=== PATIENT | male | born 1930 | race Caucasian/White ===

== ENCOUNTER 2016-11-02 10:15 | Inpatient (IN) | payer OTHER ==
[~2016-11-02] VITALS: Ht 177.8 cm; Wt 74.8 kg
--- NOTE | ~2016-11-02 | EKG ---
[address] [employer] [place] [address] ELECTROCARDIOGRAM REPORT Name: CYNDIE SERRA Room #: 435-P ADM IN M.R.#: [id number] Admission: 11/02/16 Attend Phys: Fortunato Cantor MD Discharge: Date of : 30 Report #: [id number] THIS REPORT FOR: //name// Test Date: 2016-11-02 Test Time: 12:27:41 Pat Name: CYNDIE SERRA Department: Room: 435 P Gender: M Certified Family Mediator: JEIMY : 1930 Requested By: Fortunato Cantor Order Number: [id number] MD: Brian Avila Measurements Intervals [place] Rate: 62 P: 45 MS: 167 QRS: 33 QRSD: 101 T: 32 QT: 439 QTc: 446 Interpretive Statements Sinus rhythm Abnormal R-wave progression, early transition Compared to ECG 07/24/2015 08:25:[address] and T wave abnormality is no longer present Electronically Signed On 11-03-2016 18:15:59 CDT by Brian Avila [email or web address] <ELECTRONICALLY SIGNED> By: Brian Avila MD, [facility] 11/03/16 8849 1227 1227 Brian Avila MD, [facility] /EPI
--- NOTE | ~2016-11-02 | O ---
[facility] [place] [address] OPERATIVE REPORT Name: CYNDIE SERRA Room #: 435-P [facility] IN M.R.#: [id number] Admission: 11/02/16 Attend Phys: Fortunato Cantor MD Discharge: Date of : 30 Report #: [id number] THIS REPORT FOR: //name// CC: Fortunato Salinas DATE OF SERVICE: 11/03/2016 PREOPERATIVE DIAGNOSIS: Right axillary mass, possible metastatic melanoma with skin erosion and cellulitis. POSTOPERATIVE DIAGNOSES: 1. Right axillary mass, possible metastatic melanoma with skin erosion and cellulitis. 2. Scalp lesion. PROCEDURES PERFORMED: 1. Right axillary node dissection. 2. Excision of scalp lesion. ANESTHESIA: General. SURGEON: Phil Salinas M.D. COMPLICATIONS: None. ESTIMATED BLOOD LOSS: 30 mL. SPECIMEN: Pathologist called to the room and clinical history given to the pathologist. Also, culture obtained through the necrotic area under the skin after specimen was removed. Scalp lesion sent in formalin to pathology. PROCEDURE NOTE: With the patient under general anesthesia, the right axilla prepped and draped in sterile fashion. Timeout was performed. There is a 2 cm skin nodular area with . Incision was carried around this to remove the whole skin area. There is surrounding cellulitis, pinkish redness around this in the axilla. This lesion was excised. Skin was cauterized. The skin is a little bit more oozier, possibly from his Pradaxa or the inflammatory reaction. The axilla was then entered. The edge of the pectoralis muscle was identified. The pectoralis nerve vessel bundles were preserved. There is a small branch coming to the axilla from it, these were clipped and divided. The axillary vein was found cephalad. The patient did have a quite large first branch that was preserved. The intercostal brachialis nerve was running right into the large mass and these were sacrificed. The thoracodorsal nerve was found and preserved. The long thoracic nerve was also found and preserved. The tissue underneath the axillary vein was ripped inferiorly and removed. There are a few [facility] [address] [place] [address] OPERATIVE REPORT Name: CYNDIE SERRA Room #: 435-P [facility] IN M.R.#: [id number] Admission: 11/02/16 Attend Phys: Fortunato Canotr MD Discharge: Date of : 30 Report #: [id number] visible nodes there. The main mass is removed with the axillary content and not dissected out. Clip was used on the vessel branches and lymph what looked like lymph channels. Hemostasis obtained. Pathologist was called and specimen was given to the pathologist. Clinical history of previous melanoma 5 years ago was discussed. After the lesion was removed, I incised into the skin area and obtained culture from the depth. Using instrument that has not been touched, the scalp lesion was excised. The scalp area was prepped with Chloraprep. This was then off in sterile fashion. A fresh 15 blade was used. The full thickness skin was removed and good margin around the irritated skin. The patient by history has had this area scabbed and flaked off 6 times and I am concerned this could be a skin cancer. The skin was brought together with 5-0 nylon in interrupted fashion. Needlestick was oozy and probably related to the scalp and the Pradaxa. Once the wound was closed and pressure was held, hemostasis was obtained. Antibiotic ointment was placed over suture. The patient was taken to recovery room having tolerated the procedure well. By: 1602 1630 Phil Salinas MD /nt
--- NOTE | ~2016-11-02 | HC ---
[facility] [place] [address] CONSULTATION Name: CYNDIE SERRA Room #: 435-P [facility] IN .R.#: [id number] Admission: 11/02/16 Attend Phys: Fortunato Cantor MD Discharge: 11/04/16 Date of : 30 Report #: [id number] THIS REPORT FOR: //name// CC: Fortunato Salinas Cardiology Consultation INDICATION: Paroxysmal atrial fibrillation. HISTORY OF PRESENT ILLNESS: This is an 86-year-old gentleman presenting for elective surgery for right axillary mass. He has a history of atrial flutter in July 2015, undergoing a transesophageal-guided cardioversion with Dr. Rodriguez. He has been maintained on Pradaxa and metoprolol. He has a history of melanoma of the right forearm years ago, undergoing resection. Recently, he was noted to have a mass in his right axilla area. He has been treated with oral antibiotics without any benefit and now presents for elective surgery. Clinically, he offers no complaints of angina, dyspnea, lightheadedness or congestion. PAST MEDICAL HISTORY: Atrial flutter with echo from July 2015 revealing normal LV systolic function, mild , mild AI, mild MR. History of melanoma of the right forearm status post surgery. History of prostate cancer. ALLERGIES: ERYTHROMYCIN. MEDICATIONS: Include metoprolol, CoQ10, Pradaxa which was stopped several days ago. SOCIAL HISTORY: Negative for tobacco use. FAMILY HISTORY: Negative for premature CAD. REVIEW OF SYSTEMS: A full 10-point review of systems performed. Only the pertinent positives and negatives are described in the HPI. PHYSICAL EXAMINATION: VITAL SIGNS: Blood pressure is 115/70, heart rate is 65 beats per minute. GENERAL APPEARANCE: An elderly appearing male in no acute respiratory distress. HEAD AND EYES: Normocephalic. Sclerae are anicteric. ENT: Oral mucosa moist. NECK: Supple. LUNGS: Clear to auscultation. CARDIAC: Regular rate and rhythm, S1, S2 positive. ABDOMEN: Soft, nontender. Bowel sounds positive. EXTREMITIES: No cyanosis, no edema. [facility] [address] [place] [address] CONSULTATION Name: CYNDIE SERRA Room #: 435-P [facility] IN M.R.#: [id number] Admission: 11/02/16 Attend Phys: Fortunato Cantor MD Discharge: 11/04/16 Date of : 30 Report #: [id number] ECG reveals sinus rhythm, otherwise unremarkable. LABORATORY VALUES: White count is 9.7, hemoglobin is 13.7, sodium is 139, creatinine is 1.2. ASSESSMENT AND PLAN: 1. Paroxysmal atrial flutter, remains in sinus rhythm. Pradaxa has been on hold until surgery has been completed. Continue with a beta-kasia. 2. Right axillary mass, scheduled for surgery. The patient remains clinically stable from a cardiac standpoint. He has no contraindications to proceed with surgery. 3. Mild aortic stenosis and insufficiency, recommend echo in the near future. Thank you for allowing me to participate in the care of your patient. <ELECTRONICALLY SIGNED> By: Herbert Rosario MD 11/05/16 0806 0824 0914 Herbert Rosario MD /nt
--- NOTE | ~2016-11-02 | S ---
[facility] [address] [place] [address] SURGICAL PATH RPT PROCEDURE Name: CYNDIE SERRA Room #: 435-P [facility] IN M.R.#: [id number] Admission: 11/02/16 Date of : 30 Discharge: 11/04/16 Report #: [id number] Path Case #: [id number] PATHOLOGY REPORT COLLECTION DATE: 11/03/2016 RECEIVED DATE: 11/04/2016 SUBMITTING PHYS: Dr. Phil Salinas OTHER PHYS: Dr. Fortunato Cantor SPECIMEN(S) RECEIVED: A.Right axillary mass B.Right scalp lesion * * * * * * * * * * * * FINAL DIAGNOSIS: A. 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 - LYMPH NODE DISSECTION WITH METASTATIC SQUAMOUS CELL CARCINOMA PRESENT IN 1 OF 13 AXILLARY LYMPH NODES, METASTATIC FOCUS MEASURING 1.4 CM WITH NO EXTRACAPSULAR EXTENSION (1/13 NODES). B. Skin and subcutaneous tissue, "right scalp lesion," excision: - Skin and subcutaneous tissue with solar lentigo and focal actinic changes. SYNOPTIC CANCER STAGING REPORT Specimen Site: Skin structure SPECIMEN Procedure: Excision, ellipse Primary Tumor Site: Skin Overlapping lesion of skin (specify sites): Right axillary mass (upper limb and trunk) Primary Tumor Site Laterality: Right TUMOR Histologic Type: Squamous cell carcinoma (SCC) Histologic Grade: G2: Moderately differentiated EXTENT Tumor Size: Greatest dimension (cm): 5.8 Additional Dimension (cm): 5.0 Additional Dimension (cm): 3.0 Maximum Tumor Thickness: Thickness (mm): 30 Anatomic Level: V (carcinoma invades subcutaneum) MARGINS Peripheral Margins: Uninvolved by invasive carcinoma [address] [address] SURGICAL PATH RPT PROCEDURE Name: CYNDIE SERRA Room #: 435-P [facility]PLACED BY [facility]#: [id number] Admission: 11/02/16 Date of : 30 Discharge: 11/04/16 Report #: [id number] Path Case #: [id number] Distance of Invasive Carcinoma from Closest Peripheral Margin: Specify (mm): 1 Deep Margin: Uninvolved by invasive carcinoma Distance of Invasive Carcinoma from Margin: Specify (mm): 13 ACCESSORY FINDINGS Lymph-Vascular Invasion: Not identified Perineural Invasion: Present LYMPH NODES Number of Lymph Nodes Examined: Specify: 13 Number of Lymph Nodes Involved By Metastatic Carcinoma: Number of Nodes Involved by Metastatic Carcinoma: Specify: 1 STAGE (PTNM) Primary Tumor (pT): pT2: Tumor greater than 2 cm in greatest dimension with or without one additional high risk feature, or any size with two or more high risk features Regional Lymph Nodes (pN): pN1: Metastasis in a single ipsilateral lymph node, 3 cm or less in greatest dimension Distant Metastasis (pM): Not applicable COMMENT: The patient's reported history of melanoma is noted. Clinical correlation is required. A safety representative slide is co-reviewed with Dr. Krystal Torres. The case is discussed with Dr. Phil Salinas on 11/09/16 at approximately 2:15 PM. (CLW:; 11/08/2016) PATHOLOGIST: Vanessa Meza M.D. REPORT ELECTRONICALLY SIGNED BY: Vanessa Meza M.D. DATE/TIME: 11/09/2016 23:05 * * * * * * * * * * * * GROSS PATHOLOGY: A. The specimen is received in formalin labeled "Cyndie Serra, right axillary mass, received is an ellipse of skin with attached yellow-flowers lobulated tissue measuring 11.1 x 5.1 x 6.8 cm in greatest dimensions. The epidermal surface displays a well-circumscribed, raised pink-thomas lesion, which has a longitudinal incision, measuring 2.1 x 2.0 cm. The surgical margin is inked. Sectioning reveals a large white-flowers, necrotic-appearing mass measuring approximately 5.8 x 5.0 x 3.0 cm, which grossly abuts the skin and grossly approaches the inked margin. Dissection and palpation of the remainder of the specimen displays 11 readily identifiable lymph nodes ranging in size from 0.4 to 1.2 cm in maximum dimensions. The specimen is submitted representatively as follows: [facility] [address] [place] [address] SURGICAL PATH RPT PROCEDURE Name: CYNDIE SERRA Room #: 435-P DIS IN M.R.#: [id number] Admission: 11/02/16 Date of : 30 Discharge: 11/04/16 Report #: [id number] Path Case #: [id number] A1-A5 safety representative sections of mass A6-A7 intact lymph nodes A8-A9 one bisected lymph node in each cassette. (CAA; 11/04/2016) After initial microscopic examination, the specimen is re-examined. The maximum depth of invasion of the mass is 3.0 cm, which is 1.3 cm from the deep margin. Additional safety representative sections are submitted as follows: A10 safety representative section of mass to show relationship with side margin A11 safety representative section of mass to show relationship with deep margin. (CAA; 11/06/2016) Additional safety representative sections adjacent to the safety representative sections submitted in cassette A11 are submitted as follows: A12-A13 sections on either side of section in cassette A11 A14 the section immediately superior to the section in cassette A11 A15-A16 sections on either side of the section submitted in cassette A14. (CAA; 11/08/2016) B. Received in formalin labeled "Cyndie Serra, right scalp lesion," is a 2.0 x 0.8 x 0.4 cm ellipse of skin displaying a well-circumscribed, slightly raised and pale flowers lesion which measures 0.4 x 0.2 cm. The margins are inked black. The specimen is sectioned into six pieces and entirely submitted in cassettes B1 and B2, with the tips placed in cassette B2. (CAA; 11/04/2016) CLINICAL HISTORY: Right axillary mass, right scalp lesion INITIAL CPT CODE(S): A; 93103, 73458 B; 07550 Professional services performed by [facility] at [place] [address], [place] [address] Technical services performed by [facility] at [address] [place] [address]., [address], [place] [address]. [facility] [id number] [place] [address] [address] [place] [address] SURGICAL PATH RPT PROCEDURE Name: CYNDIE SERRA Room #: 435-P [facility] IN M.R.#: [id number] Admission: 11/02/16 Date of : 30 Discharge: 11/04/16 Report #: [id number] Path Case #: [id number] PHONE: [phone] DIRECTOR: Humble Tafoya M.D. * * * END OF REPORT * * *
--- NOTE | ~2016-11-02 | H ---
[facility] [place] [address] HISTORY AND PHYSICAL Name: CYNDIE SERRA Room #: 435-P [facility] IN .R.#: [id number] Admission: 11/02/16 Attend Phys: Fortunato Cantor MD Discharge: Date of : 30 Report #: [id number] THIS REPORT FOR: //name// CC: Fortunato Salinas DATE OF SERVICE: 11/02/2016 DATE OF SERVICE: 11/02/2016 CHIEF COMPLAINT: Right axillary mass. HISTORY OF PRESENT ILLNESS: The patient is an 86-year-old gentleman who was admitted for elective treatment of a right axillary mass. I saw him several weeks ago with a swollen red area in his right arm, treated him with antibiotics and followed him over the course of about 4 weeks. There has been no improvement in the size of the mass and it remains firm and nontender. I referred him to Dr. Salinas given his prior history of melanoma in the right forearm that was resected many years ago. He has been admitted for definitive surgical biopsy and removal. PAST MEDICAL HISTORY: Atrial fibrillation, chronic anticoagulation with Pradaxa. A remote history of prostate cancer, I believe treated surgically and radiation. PAST SURGICAL HISTORY: He has had a right forearm melanoma removed many years ago. FAMILY HISTORY: Noncontributory. SOCIAL HISTORY: He lives alone. 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 ALLERGIES: Allergies are ____. MEDICATIONS: Pradaxa 150 mg b.i.d., Toprol XL 25 mg. REVIEW OF SYSTEMS: Denies headache, chest pain, shortness of breath, productive cough, weight loss, abdominal pain, nausea, vomiting, diarrhea, constipation, dysuria, syncope or fall. PHYSICAL EXAMINATION: VITAL SIGNS: Temperature 36.6, pulse 79, respirations 20, blood pressure 113/61, O2 sat 97% on room air. GENERAL: He is awake and alert, in no distress. [facility] [address] [place] [address] HISTORY AND PHYSICAL Name: CYNDIE SERRA Room #: 435-P [facility] IN [facility]#: [id number] Admission: 11/02/16 Attend Phys: Fortunato Cantor MD Discharge: Date of : 30 Report #: [id number] HEAD AND NECK: Unremarkable. LUNGS: Clear. HEART: Irregular. ABDOMEN: Soft, normoactive bowel sounds. EXTREMITIES: No edema. In the right axilla there is a red, indurated, firm mass about 3 cm. NEUROLOGIC: Cranial nerves intact. Speech is fluent. Awake, alert and oriented x 4. ASSESSMENT: 1. Right axillary mass. 2. Atrial fibrillation. 3. Chronic anticoagulation with Pradaxa. 4. Personal history of melanoma excision of the right forearm. PLAN: CT, lab, x-ray have been requested. Dr. Rodriguez will follow for atrial fibrillation management, for now, I will have to hold his Pradaxa in preparation for surgery tomorrow. Dr. Salinas knows this case well. <ELECTRONICALLY SIGNED> By: Fortunato Cantor MD 11/02/16 1649 1148 1225 Fortunato Cantor MD /nt
--- NOTE | ~2016-11-02 | H ---
[facility] [place] [address] HISTORY AND PHYSICAL Name: CYNDIE SERRA Room #: 435-P ADM IN M.R.#: [id number] Admission: 11/02/16 Attend Phys: Fortunato Cantor MD Discharge: Date of : 30 Report #: [id number] THIS REPORT FOR: //name// CC: Fortunato Salinas PREOPERATIVE DIAGNOSES: Axillary mass with cellulitis and seepage. Possible metastatic melanoma to the right axilla. HISTORY OF PRESENT ILLNESS: The patient is an 86-year-old who has a mass in the right axilla that he knows about a month ago. It has been quite sensitive. He has a history of prostate cancer, also has a history of melanoma in the right forearm in 2004. He had wide excision. No axillary dissection. The patient has had a couple of courses of oral antibiotic, which has not done anything and he is recommended to come in for workup. When I saw the patient, he does have cellulitis. No fever. He was on Pradaxa in the morning when I saw him. He was instructed not to take any more that was November 01. He is admitted on November [address] scan, laboratory and IV antibiotic since he did not respond to oral antibiotic. The best course I believe is excising this mass which likely has some necrosis and extending into the skin causing the cellulitis. CT scan will help with aiding the diagnosis. I do feel an axillary mass adjacent to the skin is the issue. PAST MEDICAL HISTORY: The patient has a history of atrial fibrillation, arthritis, mild stroke. MEDICATIONS: Pradaxa which he stopped on November 01, metoprolol, CoQ10, and chondroitin. PAST SURGICAL HISTORY: Prostate cancer surgery in 2000 and excision of melanoma of right upper forearm 5 years ago. ALLERGIES: . FAMILY HISTORY: His mother at age 94 of old age. His siblings are also quite elderly and doing well. SOCIAL HISTORY: The patient is retired. 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 Does not smoke. Does not drink. REVIEW OF SYSTEMS: Unremarkable. No weight loss, chest pain, shortness of breath or palpitation. PHYSICAL EXAMINATION: GENERAL: The patient is an elderly male. VITAL SIGNS: Temperature is 98.1. [facility] [address] [place] [address] HISTORY AND PHYSICAL Name: CYNDIE SERRA Room #: 435-P [facility] IN [facility].#: [id number] Admission: 11/02/16 Attend Phys: Fortunato Cantor MD Discharge: Date of : 30 Report #: [id number] HEENT: Pupils react to light. Extraocular muscles are intact. LYMPHATICS: No supraclavicular adenopathy. No left axillary adenopathy. Right axilla does show cellulitis of the skin. There is a part of the skin in the axilla that is bumpy and about 2 cm. There is about a 3-4 cm mass beneath this. There is some seepage. HEART: Irregular rate and rhythm. No murmur or gallop. LUNGS: Clear. There is an incision identified in the right forearm. ABDOMEN: Soft, nondistended, nontender, no mass, no guarding or rigidity. EXTREMITIES: No cyanosis, clubbing or edema. IMPRESSION: The patient with a history of melanoma, now has an axillary mass and looks like the axillary mass is extending to the skin, probably has necrosis within this. CT scan was done today and it does show a 3-4 cm mass. He is recommended to excise this, possibly undergoing a full node dissection. With his age and large size of the lesion that is in the axilla, I do not think that this surgery will be curative. At the same time, he is 86 and I do not think he is a candidate for adjuvant treatment. We will have our oncologist see him after the diagnosis is made. By: 2140 0016 Phil Salinas MD /nt
[~2016-11-02 10:15] MED LIST: AUGMENTIN 500-1 EACH PO; CENTRUM SILVER1 EAC2 PO; FISH OIL 1,001000 M2 PO; GLUCOSAMINE-MS1 EAC2 PO; MUCINEX TA600 MG/TA2 PO; PRADAXA150 MG PO; TOPROL XL25 MG PO
[2016-11-02 10:45] VITALS: BP 113/61
[2016-11-02] MEDS ORDERED: GLUCOSAMINE HC500 MG PO (10:53)
[2016-11-02] MEDS ORDERED: COQ-10100 MG PO (10:54)
[2016-11-02 11:49] LABS: HEMATOCRIT 39.2 % (42.0-52.0); HEMOGLOBIN 13.7 gm/dL (14.0-18.0); MCH 34.3 pg (26.0-34.0); MCHC 34.9 g/dL (28.0-37.0); MCV 98.2 fL (80.0-100.0); RBC 3.99 mil/uL (4.50-6.00); RDW 13.4 % (10.5-14.5); WBC 9.7 thou/uL (4.0-11.0)
[2016-11-02 11:58] LABS: CALCIUM 8.7 mg/dL (8.5-10.1); CREATININE 1.2 mg/dL (0.7-1.3); POTASSIUM 4.4 mmol/L (3.5-5.1)
[2016-11-02 12:18] LABS: ALBUMIN 3.2 g/dL (3.4-5.0); CALCIUM 8.8 mg/dL (8.5-10.1); CREATININE 1.2 mg/dL (0.7-1.3); POTASSIUM 4.5 mmol/L (3.5-5.1); TOTAL BILIRUBIN 0.5 mg/dL (<0.1-1.0); TOTAL PROTEIN 7.5 g/dL (6.4-8.2)
[2016-11-02 16:18] VITALS: BP 131/70
[2016-11-02 19:20] VITALS: BP 130/64
[2016-11-03] VITALS (7 sets, daily range): BP systolic 117–146; BP diastolic 63–72
[2016-11-04 02:57] VITALS: BP 104/53
[2016-11-04 08:00] VITALS: BP 108/58
[2016-11-04 12:09] VITALS: BP 108/58
[2016-11-04 16:00] VITALS: BP 118/53
[2016-11-04 18:16] VITALS: BP 108/58
== END 2016-11-04 19:09 | disposition home health service (06) | DRG 571 ==
LOC: 4S 10:15 → 4E 15:42 → 4S 11-04 19:09
PROVIDERS: Internal Medicine Geriatric Medicine
PROC: 0HB0XZZ Excision of Scalp Skin, External Approach (ICD-10-PCS; principal; 2016-11-03)
DX: R22.9 Localized swelling, mass and lump, unspecified (principal); L03.111 Cellulitis of right axilla; I48.92 Unspecified atrial flutter; I35.0 Nonrheumatic aortic (valve) stenosis; I48.91 Unspecified atrial fibrillation; M19.90 Unspecified osteoarthritis, unspecified site; Z88.1 Allergy status to other antibiotic agents; Z85.46 Personal history of malignant neoplasm of prostate; Z85.820 Personal history of malignant melanoma of skin; Z79.01 Long term (current) use of anticoagulants; Z86.73 Personal history of transient ischemic attack (TIA), and cerebral infarction without residual deficits
CPT/HCPCS: 10102; 50010; 50101; 50386; 50417; 51301; 56525; 56527; 62110; 62900; 70005

== ENCOUNTER 2019-06-19 13:25 | Emergency (ER) | payer OTHER ==
[~2019-06-19] VITALS: Ht 177.8 cm; Wt 69.4 kg
[~2019-06-19 13:25] MED LIST changes: +COQ-10100 MG PO; +GLUCOSAMINE HC500 MG PO
[2019-06-19] MEDS ORDERED: ELIQUIS5 MG PO (13:53)
[2019-06-19] MEDS ORDERED: ONE DAILY FOR1 EAC2 PO (13:53)
[2019-06-19 14:03] LABS: ABSOLUTE NEUTROPHILS 4.3 thou/uL (1.4-8.2); BASOPHILS 0.9 % (0.0-2.0); EOSINOPHILS 3.5 % (0.0-3.0); HEMATOCRIT 43.1 % (42.0-52.0); HEMOGLOBIN 14.2 gm/dL (14.0-18.0); LYMPHOCYTES 45.3 % (24.0-44.0); MCH 34.8 pg (26.0-34.0); MCV 105.5 fL (80.0-100.0); MONOCYTES 7.9 % (1.0-8.0); PLATELET COUNT 227 thou/uL (150-400); POLYS 42.4 % (36.0-66.0); RBC 4.09 mil/uL (4.50-6.00); RDW 13.7 % (10.5-14.5); WBC 10.1 thou/uL (4.0-11.0)
[2019-06-19 14:26] LABS: ALBUMIN 3.5 g/dL (3.4-5.0); BUN 17 mg/dL (7-18); CALCIUM 9.3 mg/dL (8.5-10.1); CO2 26 mmol/L (21-32); CREATININE 1.4 mg/dL (0.7-1.3); GLUCOSE 101 mg/dL (74-106); SGOT 24 U/L (15-37); SGPT 15 U/L (30-65); TOTAL BILIRUBIN 0.5 mg/dL (<0.1-1.0); TOTAL PROTEIN 8.1 g/dL (6.4-8.2); TROPONIN-I <0.06 ng/mL (<0.06)
--- NOTE | 2019-06-19 14:32 | EKG ---
[facility] [place] [address] ELECTROCARDIOGRAM REPORT Name: CYNDIE SERRA Room #: [facility]#: [id number] Admission: Attend Phys: Discharge: Date of : 30 Report #: [id number] THIS REPORT FOR: cc: Fortunato Cantor MD, Craig H. 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[facility] [employer] [facility] : 1930 Requested By: Monico Flowers Order Number: [id number] MD: Brian Avila Measurements Intervals [place] Rate: 65 P: 46 MT: 177 QRS: 25 QRSD: 132 T: 27 QT: 417 QTc: 434 Interpretive Statements Sinus rhythm Right bundle branch block Compared to ECG 11/02/2016 12:27:41 Right bundle-branch block now present Electronically Signed On 06-19-2019 14:31:18 CDT by Brian Avila [email or web address] <ELECTRONICALLY SIGNED> By: Brian Avila MD, [facility] 06/19/19 1431 D: [id number] Brian Avila MD, [facility] /EPI
[2019-06-19 14:41] LABS: ANION GAP 10 mmol/L (7-16); CHLORIDE 101 mmol/L (98-107); POTASSIUM 4.5 mmol/L (3.5-5.1); SODIUM 137 mmol/L (136-145)
[2019-06-19 15:12] VITALS: BP 155/65
== END 2019-06-19 15:28 | disposition home or self-care (01) ==
LOC: ER 13:25
PROVIDERS: Emergency Medicine
DX: R07.9 Chest pain, unspecified (principal); Z79.899 Other long term (current) drug therapy

== ENCOUNTER 2019-06-20 18:36 | Emergency (ER) | payer OTHER ==
[~2019-06-20] VITALS: Ht 177.8 cm; Wt 55.8 kg
--- NOTE | ~2019-06-20 | EMS ---
[address] [address] EMS Patient Care Report Name: CYNDIE SERRA Room #: REG DARSHANA Fisher#: [id number] Admission: 06/20/19 Attend Phys: Discharge: Date of : 30 Report #: [id number] THIS REPORT FOR: //name// Report Transmitted: 06/20/2019 18:22 EMS Care Summary [facility] Incident [id number] @ 06/20/2019 17:44 Incident Location [address] [place] [address] Patient CYNDIE SERRA Male, 89 Years 1930 Patient Address [address] [place] [address] Patient History None Reported, Patient Allergies No known allergies, Patient Medications Metoprolol, Apixaban, Chief Complaint R sided, sharp chest pain - increases with moving Disposition Transported No Lights/[place] Dispatch Reason Chest Pain (Non-Traumatic) Transported To [facility] Narrative Pt is found sitting in a chair with FD at side. Pt is in no acute distress. Pt states he called EMS due to R sided and lower chest pain that feels sharp and [address] [address] EMS Patient Care Report Name: CYNDIE SERRA [id number] Admission: 06/20/19 Attend Phys: Discharge: Date of : 30 Report #: [id number] stabbing. Pt states his pain only increases when he ambulates around. Pt states his pain is a 10/10 when he ambulates, and is a 0/10 when he sits still. On EMS arrival pt states his pain is a 0/10. Pt states his pain does not radiate and is isolated to his R lower chest area Pt states he has had this sharp R sided chest pain for approx 4 days. Pt states he went to [facility] yesterday and had multiple tests run with no Dx. Pt states he was advised yesterday to be admitted, but states he went home. Pt denied: SOB, abd pain, chest pain with respiration/palpation, weakness, back pain, n/v/d/fv, recent trauma, cough, recent travel. Pt expressed no further complaints/discomfort. Tx= vs, EKG/12lead-NSR. pt rolled from bedroom to outside on chair, pt able to stand and sit from chair to cot and secured without incident. En route= VS, hospital contact with info only. Pt states his chest pain is a 0/10 during transport. Initial Vitals @PTAP: 93,BP: 171/113,SpO2: 97, @18:04P: 85,R: 16,BP: 178/82,SpO2: 97, @18:23P: 76,R: 16,BP: 170/94,GCS: 15,SpO2: 96,Revised Trauma: 12, @18:14P: 74,R: 16,BP: 178/89,GCS: 15,SpO2: 97,Revised Trauma: 12, @17:56P: 85,R: 16,Pain: 0/10,GCS: 15,SpO2: 100,AL Suspected: false Assessments @17:55MENTAL:Person Oriented,Time Oriented,Event Oriented,Place Oriented,SKIN:HEENT:Head/Face: No Abnormalities,LUNG SOUNDS:General: No Abnormalities,ABDOMEN:General: No Abnormalities,PELVIS//GI:EXTREMITIES:Left Arm: No Abnormalities,Right Arm: No Abnormalities,Left Leg: No Abnormalities,Right Leg: No Abnormalities,PULSE:NEURO:No Abnormalities, Impression Chest Pain, Other (Non-Cardiac) Procedures @17:5612-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,BP: 171/113 M,PULSE: 93,RR: R,SPO2: 97 Ox,ETCO2: ,BG: ,PAIN: ,GCS: , 17:43,Call Received 17:43,Psap Call 17:44,Dispatched 17:45,En Route 17:52,On Scene 17:53,At Patient 17:56,12-Lead ECG, 17:56,BP: / M,PULSE: 85,RR: 16 R,SPO2: 100 Ox,ETCO2: ,BG: ,PAIN: 0,GCS: 15, 18:03,Depart Scene [facility] [address] [place] [address] EMS Patient Care Report Name: CYNDIE SERRA [facility] #: [facility] [id number] Admission: 06/20/19 Attend Phys: Discharge: Date of : 30 Report #: [id number] 18:04,BP: 178/82 M,PULSE: 85,RR: 16 R,SPO2: 97 Ox,ETCO2: ,BG: ,PAIN: ,GCS: , 18:14,BP: 178/89 M,PULSE: 74,RR: 16 R,SPO2: 97 Ox,ETCO2: ,BG: ,PAIN: ,GCS: 15, 18:23,BP: 170/94 M,PULSE: 76,RR: 16 R,SPO2: 96 Ox,ETCO2: ,BG: ,PAIN: ,GCS: 15, 18:28,At Destination 18:41,Call Closed Disclaimer v1.1 Copyright 2020 [employer] This EMS Care Summary contains data elements from the applicable legal record (which may be displayed differently). It is designed to provide pertinent information for the following purposes: continuity of care, clinical quality, and state data reporting. The complete legal record is available to ED staff and administrators of the receiving hospital in ES's Patient Tracker. All data is provided "as is."
[~2019-06-20 18:36] MED LIST changes: +ELIQUIS5 MG PO; +ONE DAILY FOR1 EAC2 PO
[2019-06-20 19:17] LABS: HEMATOCRIT 42.9 % (42.0-52.0); HEMOGLOBIN 14.5 gm/dL (14.0-18.0); MCH 35.6 pg (26.0-34.0); MCHC 33.9 g/dL (28.0-37.0); MCV 104.9 fL (80.0-100.0); PLATELET COUNT 218 thou/uL (150-400); RBC 4.09 mil/uL (4.50-6.00); RDW 13.6 % (10.5-14.5); WBC 8.9 thou/uL (4.0-11.0)
[2019-06-20 19:27] LABS: ANION GAP 5 mmol/L (7-16); BUN 19 mg/dL (7-18); CALCIUM 9.4 mg/dL (8.5-10.1); CHLORIDE 101 mmol/L (98-107); CO2 30 mmol/L (21-32); CREATININE 1.4 mg/dL (0.7-1.3); GLUCOSE 97 mg/dL (74-106); POTASSIUM 4.8 mmol/L (3.5-5.1); SODIUM 136 mmol/L (136-145)
[2019-06-20 19:35] LABS: TROPONIN-I <0.06 ng/mL (<0.06)
[2019-06-20 20:35] VITALS: BP 156/82
[2019-06-20 21:29] LABS: ABSOLUTE NEUTROPHILS 3.2 thou/uL (1.4-8.2); ANISOCYTOSIS 1+; MACROCYTES 1+; PLATELET ESTIMATE NORMAL; POIKILOCYTOSIS 1+
--- NOTE | 2019-06-21 07:55 | EKG ---
[facility] [place] [address] ELECTROCARDIOGRAM REPORT Name: CYNDIE SERRA Room #: DEP [facility]#: [id number] Admission: 06/20/19 Attend Phys: Discharge: 06/20/19 Date of : 30 Report #: [id number] THIS REPORT FOR: cc: Fortunato Cantor MD, David W. MD Lundgren,Brian Price MD [facility] ~ THIS REPORT FOR: //name// 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: [facility] : 1930 Requested By: Freedom Epps Order Number: [id number] MD: Brian Avila Measurements Intervals [place] Rate: 72 P: 67 NE: 186 QRS: 46 QRSD: 135 T: 37 QT: 427 QTc: 468 Interpretive Statements Sinus rhythm Right bundle branch block Compared to ECG 06/19/2019 13:25:40 No significant change was found Electronically Signed On 06-21-2019 7:54:06 CDT by Brian Avila [email or web address] <ELECTRONICALLY SIGNED> By: Brian Avila MD, FACC 06/21/19 [id number] Brian Avila MD, [facility] /EPI
== END 2019-06-20 20:37 | disposition home or self-care (01) ==
LOC: ER 18:36
PROVIDERS: Nurse Practitioner
DX: R07.81 Pleurodynia (principal); Z85.820 Personal history of malignant melanoma of skin; Z85.46 Personal history of malignant neoplasm of prostate; Z88.1 Allergy status to other antibiotic agents